=== PATIENT | female | born 1990 | race Caucasian/White ===

== ENCOUNTER 2017-10-07 14:56 | Outpatient (CLI) | payer OTHER ==
[~2017-10-07 14:56] MED LIST: LEVAQUIN500 MG PO; MACROBID 100 M100 MG PO; SEPTRA DS TABLE1 TAB; URETRON DS1 TAB PO
== END 2017-10-07 14:57 | disposition home or self-care (01) ==
LOC: LAB 14:56
DX: N91.2 Amenorrhea, unspecified (principal)

== ENCOUNTER 2017-10-24 06:52 | Outpatient (CLI) | payer OTHER | END 2017-10-24 06:53 | disposition home or self-care (01) | LOC: LAB 06:52 | DX: Z13.0 Encounter for screening for diseases of the blood and blood-forming organs and certain disorders involving the immune mechanism (principal); R52 Pain, unspecified; R51 Headache; J20.8 Acute bronchitis due to other specified organisms; J10.89 Influenza due to other identified influenza virus with other manifestations ==

== ENCOUNTER 2017-12-31 08:42 | Outpatient (CLI) | payer OTHER | END 2017-12-31 08:50 | disposition home or self-care (01) | LOC: LAB 08:42 | DX: Z31.430 Encounter of female for testing for genetic disease carrier status for procreative management (principal); Z31.5 Encounter for procreative genetic counseling; O09.892 Supervision of other high risk pregnancies, second trimester ==

== ENCOUNTER → 2018-01-12 16:30 | Outpatient (CLI) | payer OTHER | END | disposition home or self-care (01) | LOC: LAB 16:30 | DX: N30.00 Acute cystitis without hematuria (principal); N39.0 Urinary tract infection, site not specified; R82.79 Other abnormal findings on microbiological examination of urine ==

== ENCOUNTER 2018-01-26 09:04 | Outpatient (CLI) | payer OTHER | END 2018-01-26 17:00 | disposition home or self-care (01) | LOC: SONOGRAMA 09:04 | DX: Z34.02 Encounter for supervision of normal first pregnancy, second trimester (principal); Z3A.19 19 weeks gestation of pregnancy ==

== ENCOUNTER → 2018-02-08 07:51 | Outpatient (CLI) | payer OTHER | END | disposition home or self-care (01) | LOC: LAB 07:51 | DX: O09.892 Supervision of other high risk pregnancies, second trimester (principal); Z34.92 Encounter for supervision of normal pregnancy, unspecified, second trimester; Z3A.24 24 weeks gestation of pregnancy ==

== ENCOUNTER 2018-02-23 01:26 | Outpatient (CLI) | payer OTHER | END 2018-02-23 15:25 | disposition home or self-care (01) | LOC: OBS/DEL 01:26 | DX: O16.2 Unspecified maternal hypertension, second trimester (principal); O60.02 Preterm labor without delivery, second trimester; Z34.02 Encounter for supervision of normal first pregnancy, second trimester ==

== ENCOUNTER 2018-03-12 16:18 | Outpatient (CLI) | payer OTHER ==
[2018-03-12] MEDS ORDERED: PRENATABS RX T1 EACH PO (17:12)
[2018-03-12] MEDS ORDERED: ALDOMET250 MG PO (17:13)
[2018-03-12] MEDS ORDERED: PEPCID20 MG PO (17:13)
== END 2018-03-13 09:56 | disposition home or self-care (01) ==
LOC: OBS/DEL 16:18
DX: O26.892 Other specified pregnancy related conditions, second trimester (principal); Z04.3 Encounter for examination and observation following other accident; O60.02 Preterm labor without delivery, second trimester; Z34.02 Encounter for supervision of normal first pregnancy, second trimester; W18.39XA Other fall on same level, initial encounter; Y93.89 Activity, other specified; Y92.098 Other place in other non-institutional residence as the place of occurrence of the external cause; Y99.8 Other external cause status

== ENCOUNTER 2018-04-12 09:11 | Outpatient (CLI) | payer OTHER ==
[~2018-04-12 09:11] MED LIST changes: +ALDOMET250 MG PO; +PEPCID20 MG PO; +PRENATABS RX T1 EACH PO
== END 2018-04-12 09:14 | disposition home or self-care (01) ==
LOC: LAB 09:11
DX: O09.893 Supervision of other high risk pregnancies, third trimester (principal); R51 Headache; J20.8 Acute bronchitis due to other specified organisms; J10.89 Influenza due to other identified influenza virus with other manifestations

== ENCOUNTER 2018-05-17 17:15 | Inpatient (IN) | payer OTHER ==
[~2018-05-17] VITALS: Ht 172.7 cm; Wt 3.6 kg
[2018-06-05] MEDS ORDERED: INTESTINEX680 M1 PO (11:42)
[2018-06-10] MEDS ORDERED: IBUPROFEN800 MG PO (07:48)
[2018-06-10] MEDS ORDERED: GAS RELIEF125 MG PO (07:48)
[2018-06-10] MEDS ORDERED: ALDOMET250 MG PO (07:48)
[2018-06-10] MEDS ORDERED: DOCUSATE SODIU100 MG PO (07:48)
[2018-06-10] MEDS ORDERED: PRENATABS RX T1 EACH PO (07:48)
== END 2018-06-10 14:40 | DRG 788 ==
LOC: LDR 06-04 17:12 → OB/GYN 06-07 08:55 → SURG-SUITE 06-07 20:23 → OB/GYN 06-07 20:58
PROVIDERS: Obstetrics & Gynecology
PROC: 3E033VJ Introduction of Other Hormone into Peripheral Vein, Percutaneous Approach (ICD-10-PCS; 2018-06-07)
PROC: 4A1HXCZ Monitoring of Products of Conception, Cardiac Rate, External Approach (ICD-10-PCS; 2018-06-07)
PROC: 10D00Z1 Extraction of Products of Conception, Low, Open Approach (ICD-10-PCS; principal; 2018-06-07 18:00)
DX: O62.0 Primary inadequate contractions (principal); Z3A.40 40 weeks gestation of pregnancy; Z37.0 Single live birth

== ENCOUNTER 2018-06-05 08:28 | Outpatient (CLI) | payer OTHER ==
[2018-06-05] MEDS ORDERED: INTESTINEX680 M1 PO (11:42)
== END 2018-06-05 12:30 | disposition home or self-care (01) ==
LOC: OBS/DEL 08:28
DX: O47.1 False labor at or after 37 completed weeks of gestation (principal)

== ENCOUNTER 2018-06-27 11:06 | Outpatient (CLI) | payer OTHER ==
[~2018-06-27 11:06] MED LIST changes: +DOCUSATE SODIU100 MG PO; +GAS RELIEF125 MG PO; +IBUPROFEN800 MG PO; +INTESTINEX680 M1 PO
== END 2018-06-27 11:10 | disposition home or self-care (01) ==
LOC: LAB 11:06
DX: Z00.00 Encounter for general adult medical examination without abnormal findings (principal); I10 Essential (primary) hypertension; E78.00 Pure hypercholesterolemia, unspecified; N39.0 Urinary tract infection, site not specified; E55.9 Vitamin D deficiency, unspecified; Z21 Asymptomatic human immunodeficiency virus [HIV] infection status; R79.89 Other specified abnormal findings of blood chemistry; E03.8 Other specified hypothyroidism

== ENCOUNTER 2018-10-23 11:32 | Emergency (ER) | payer OTHER ==
[~2018-10-23] VITALS: Ht 170.2 cm; Wt 90.7 kg
== END 2018-10-23 17:36 | disposition home or self-care (01) ==
LOC: ER 11:32
DX: R53.81 Other malaise (principal); K29.70 Gastritis, unspecified, without bleeding; B96.0 Mycoplasma pneumoniae [M. pneumoniae] as the cause of diseases classified elsewhere

== ENCOUNTER → 2019-03-05 16:46 | Outpatient (CLI) | payer OTHER | END | disposition home or self-care (01) | LOC: RAD 16:46 | DX: M99.01 Segmental and somatic dysfunction of cervical region (principal); M99.02 Segmental and somatic dysfunction of thoracic region; M99.03 Segmental and somatic dysfunction of lumbar region; M99.04 Segmental and somatic dysfunction of sacral region ==

== ENCOUNTER 2019-04-22 23:27 | Emergency (ER) | payer OTHER ==
[~2019-04-22] VITALS: Ht 170.2 cm; Wt 95.3 kg
[2019-04-23] MEDS ORDERED: ZITHROMAX500 MG PO (01:49)
[2019-04-23] MEDS ORDERED: ZYNCOF 20-400120 ML PO (01:49)
== END 2019-04-23 01:55 | disposition home or self-care (01) ==
LOC: ER 23:27
DX: R05 Cough (principal); B96.0 Mycoplasma pneumoniae [M. pneumoniae] as the cause of diseases classified elsewhere

== ENCOUNTER 2019-08-16 23:45 | Emergency (ER) | payer OTHER ==
[~2019-08-16] VITALS: Ht 170.2 cm; Wt 95.3 kg
[~2019-08-16 23:45] MED LIST changes: +ZITHROMAX500 MG PO; +ZYNCOF 20-400120 ML PO
== END 2019-08-17 00:52 | disposition home or self-care (01) ==
LOC: ER 23:45
DX: T78.49XA Other allergy, initial encounter (principal); L29.8 Other pruritus

== ENCOUNTER 2020-03-24 15:00 | Emergency (ER) | payer OTHER ==
[~2020-03-24] VITALS: Ht 170.2 cm; Wt 95.3 kg
[2020-03-24] MEDS ORDERED: KETO10TA2 PO (20:24)
[2020-03-24] MEDS ORDERED: BUTALBIT-ACETA1 EACH PO ×2 (20:24→20:25)
[2020-03-24] MEDS ORDERED: ZOFRAN8 MG PO (20:24)
== END 2020-03-24 20:39 | disposition home or self-care (01) ==
LOC: ER 15:00
DX: R51 Headache (principal); Z20.828 Contact with and (suspected) exposure to other viral communicable diseases

== ENCOUNTER 2022-12-11 09:41 | Emergency (ER) | payer OTHER ==
[~2022-12-11] VITALS: Ht 172.7 cm; Wt 102.5 kg
[~2022-12-11 09:41] MED LIST changes: +BUTALBIT-ACETA1 EACH PO; +KETO10TA2 PO; +ZOFRAN8 MG PO
== END 2022-12-11 16:15 | disposition home or self-care (01) ==
LOC: ER 09:41
DX: G44.89 Other headache syndrome (principal); R11.0 Nausea; Z20.822 Contact with and (suspected) exposure to COVID-19; Z88.1 Allergy status to other antibiotic agents

== ENCOUNTER → 2023-03-19 | Emergency (ER) | payer OTHER ==
[~2023-03-19] VITALS: Ht 172.7 cm; Wt 101.6 kg
[~2023-03-19] MED LIST changes: +DICLOFENAC SODI75 MG PO
== END | disposition home or self-care (01) ==
LOC: ER 09:08
DX: S93.402A Sprain of unspecified ligament of left ankle, initial encounter (principal); X58.XXXA Exposure to other specified factors, initial encounter; Y93.89 Activity, other specified; Y92.89 Other specified places as the place of occurrence of the external cause; Y99.9 Unspecified external cause status; Z88.8 Allergy status to other drugs, medicaments and biological substances